=== PATIENT | male | born 1930 | race Caucasian/White ===

== ENCOUNTER → 2017-04-02 | Outpatient (CLI) | payer MEDICARE, OTHER ==
[~2017-04-02] MED LIST: ACEDIPPM; ASPI81CH; ATOR10; Bentyl20 MG PO; Cipro500 MG PO; DULO60; FOLI400; HYDACE5 PO; LEVOTHYROXINE; LEVSOD137; METO50ER; POLTRIOPSO OD; ROSU5; WARF2; WARF5
== END ==
LOC: LAB SHORT 10:14 → PLD 10:14
DX: D22.5 Melanocytic nevi of trunk (principal)
CPT/HCPCS: 88305

== ENCOUNTER 2017-11-05 11:28 | Day surgery (SDC) | payer MEDICARE, OTHER ==
[~2017-11-05] VITALS: Ht 182.9 cm; Wt 77.4 kg
== END 2017-11-05 13:34 | disposition home or self-care (01) ==
LOC: ORSCSDS 11:28
PROVIDERS: Internal Medicine Gastroenterology
PROC: 0DBE8ZX Excision of Large Intestine, Via Natural or Artificial Opening Endoscopic, Diagnostic (ICD-10-PCS; principal; 2017-11-05 12:30)
DX: R63.4 Abnormal weight loss (principal); K64.8 Other hemorrhoids; Z86.010 Personal history of colon polyps; K57.30 Diverticulosis of large intestine without perforation or abscess without bleeding; K59.00 Constipation, unspecified; E78.5 Hyperlipidemia, unspecified; E07.9 Disorder of thyroid, unspecified; F41.8 Other specified anxiety disorders
CPT/HCPCS: 88305; J7120

== ENCOUNTER 2018-08-01 19:12 | Emergency (ER) | payer MEDICARE, OTHER ==
[~2018-08-01] VITALS: Ht 182.9 cm; Wt 74.8 kg
[~2018-08-01 19:12] MED LIST changes: -ASPI81CH; +ASPI81CH PO; -ATOR10; +ATOR10 PO; -DULO60; +DULO60 PO; -LEVSOD137; +LEVSOD137 PO
[2018-08-01 19:54] LABS: BASOPHILS ABSOLUTE AUTO 0.03 K/mm3 (0.00-0.23); BASOPHILS PERCENT AUTO 0 % (0-2); EOSINOPHILS ABSOLUTE AUTO 0.09 K/mm3 (0.00-0.68); EOSINOPHILS PERCENT AUTO 1 % (0-6); Hematocrit 39.6 % (37.0-53.0); Hemoglobin 12.9 g/dL (13.5-17.5); IMMATURE GRAN ABSOLUTE AUTO 0.02 K/mm3 (0.00-0.10); IMMATURE GRAN PERCENT AUTO 0 % (0-1); LYMPHOCYTES ABSOLUTE AUTO 1.26 K/mm3 (0.84-5.20); LYMPHOCYTES PERCENT AUTO 17 % (21-46); MONOCYTES PERCENT AUTO 8 % (4-13); Mean Corpuscular HGB 31.2 pg (26.0-34.0); Mean Corpuscular HGB Conc 32.6 g/dL (31.5-36.5); Mean Corpuscular Volume 96 fL (80-100); Mean Platelet Volume 11.3 fL (9.1-12.4); NEUTROPHILS ABSOLUTE AUTO 5.25 K/mm3 (1.96-9.15); NEUTROPHILS PERCENT AUTO 72 % (41-73); Platelet Count 153 K/mm3 (150-400); RDW Coefficient Variation 12.8 % (11.7-14.2); RDW Standard Deviation 45.2 fL (35.1-46.3); Red Blood Cell Count 4.13 M/mm3 (4.30-5.90); White Blood Cell Count 7.25 K/mm3 (4.00-11.30)
[2018-08-01 20:14] LABS: Albumin, Blood 3.6 g/dL (3.4-5.0); Bilirubin, Total 0.6 mg/dL (0.1-1.0); Bun/Creatinine Ratio 21.2 (12.0-20.0); Calcium, Blood 9.7 mg/dL (8.5-10.1); Creatinine, Blood 1.56 mg/dL (0.60-1.20); Globulin, Blood 3.6 g/dL (2.2-4.0); Potassium, Blood 3.6 mmol/L (3.5-5.5); Total Protein, Blood 7.2 g/dL (6.4-8.2)
== END 2018-08-01 23:21 | disposition home or self-care (01) ==
LOC: ER 19:12
PROVIDERS: Emergency Medicine
DX: R63.4 Abnormal weight loss (principal); Z68.22 Body mass index [BMI] 22.0-22.9, adult; R53.1 Weakness; Z79.899 Other long term (current) drug therapy; Z79.82 Long term (current) use of aspirin; I48.91 Unspecified atrial fibrillation; Z87.891 Personal history of nicotine dependence
CPT/HCPCS: 74177; 80053; 84443; 84484; 85025; 93005; 93010; 96360-59; 96361-59; 99285-25; J7120; Q9967

== ENCOUNTER → 2018-09-10 | Outpatient (CLI) | payer MEDICARE, OTHER | END | disposition home or self-care (01) | LOC: PLD 10:57 → LAB SHORT 10:57 | DX: D48.5 Neoplasm of uncertain behavior of skin (principal) | CPT/HCPCS: 88305 ==

== ENCOUNTER 2019-04-13 16:24 | Observation (INO) | payer MEDICARE, OTHER ==
[~2019-04-13] VITALS: Ht 182.9 cm; Wt 75.1 kg
[~2019-04-13 16:24] MED LIST changes: -ASPI81CH PO; +Aspir 8181 MG PO; -LEVSOD137 PO; +SYNTHROID125 MC1 PO
[2019-04-13 17:00] LABS: BASOPHILS ABSOLUTE AUTO 0.03 K/mm3 (0.00-0.23); BASOPHILS PERCENT AUTO 0 % (0-2); EOSINOPHILS ABSOLUTE AUTO 0.07 K/mm3 (0.00-0.68); EOSINOPHILS PERCENT AUTO 1 % (0-6); Hematocrit 49.4 % (37.0-53.0); Hemoglobin 16.4 g/dL (13.5-17.5); IMMATURE GRAN ABSOLUTE AUTO 0.03 K/mm3 (0.00-0.10); IMMATURE GRAN PERCENT AUTO 0 % (0-1); LYMPHOCYTES ABSOLUTE AUTO 1.08 K/mm3 (0.84-5.20); LYMPHOCYTES PERCENT AUTO 10 % (21-46); MONOCYTES ABSOLUTE AUTO 0.78 K/mm3 (0.16-1.47); MONOCYTES PERCENT AUTO 7 % (4-13); Mean Corpuscular HGB 31.6 pg (26.0-34.0); Mean Corpuscular HGB Conc 33.2 g/dL (31.5-36.5); Mean Corpuscular Volume 95 fL (80-100); Mean Platelet Volume 11.6 fL (9.1-12.4); NEUTROPHILS ABSOLUTE AUTO 9.09 K/mm3 (1.96-9.15); NEUTROPHILS PERCENT AUTO 82 % (41-73); Platelet Count 179 K/mm3 (150-400); RDW Coefficient Variation 12.7 % (11.7-14.2); RDW Standard Deviation 44.9 fL (35.1-46.3); Red Blood Cell Count 5.19 M/mm3 (4.30-5.90); White Blood Cell Count 11.08 K/mm3 (4.00-11.30)
[2019-04-13] MEDS ORDERED: VENLAFAXINE HCL75 M1 PO (17:36)
[2019-04-13] MEDS ORDERED: ATORVASTATIN CA10 M1 PO (17:36)
[2019-04-13] MEDS ORDERED: LEVOTHYROXINE137 MCG PO (17:36)
[2019-04-13 17:40] LABS: Alanine Aminotransfer (ALT/SGP 33 U/L (12-78); Albumin, Blood 3.9 g/dL (3.4-5.0); Albumin/Globulin Ratio 1.1 (0.8-1.8); Alk Phos 116 U/L (50-136); Anion Gap 4 mmol/L (6-16); Aspartate Aminotrans (AST/SGOT 20 U/L (12-37); Bilirubin, Total 0.6 mg/dL (0.1-1.0); Blood Urea Nitrogen 38 mg/dL (8-24); Bun/Creatinine Ratio 28.6 (12.0-20.0); CO2, Blood 28 mmol/L (21-32); Calcium, Blood 9.6 mg/dL (8.5-10.1); Chloride, Blood 107 mmol/L (98-108); Creatinine, Blood 1.33 mg/dL (0.60-1.20); Globulin, Blood 3.4 g/dL (2.2-4.0); Glomerular Filtration Rate 54 (60-); Glucose, Blood 114 mg/dL (70-99); Potassium, Blood 3.7 mmol/L (3.5-5.5); Sodium, Blood 139 mmol/L (136-145); Total Protein, Blood 7.3 g/dL (6.4-8.2); Troponin I <0.015 ng/mL (0.000-0.040)
[2019-04-13 19:32] LABS: Free Thyroxine 1.12 ng/dL (0.70-1.60)
[2019-04-13 19:33] LABS: Thyroid Stimulating Hormone 0.259 uIU/mL (0.360-4.800); Triiodothyronine, Free 2.45 pg/mL (2.18-3.98)
--- NOTE | 2019-04-14 05:07 | NUR ---
SHIFT SUMMARY PT SLEEPING IN ROOM COMFORTABLY AT THIS TIME. PT ARRIVED TO UNIT ON CARDIZEM GTT AT 10ML/HR W/ HR 120'S IN AFIB. PT CONVERTED TO NSR AT 0345 AND CARDIZEM GTT WAS TURNED OFF AT THAT TIME. RESP EVEN UNLABORED ON RA W/ SATS >92%. DENIED ANY CP. 2ND TROP SLIGHTLY ELEVATED. PT DENIED OTHER NEEDS. INDEPENDENT IN ROOM. CALL LIGHT IN REACH.
--- NOTE | 2019-04-14 16:41 | NUR ---
SHIFT SUMMARY PT A&Ox4; CALM AND COOPERATIVE WITH CARE. PT RESTING IN BED, IND IN ROOM. PER TELE SR WITH PAC'S T/O SHIFT. PT DENIES PAIN, CHEST PAIN/PRESSURE, SOB, DIZZINESS, AND NAUSEA T/O SHIFT. ECHO COMPLETED DURING SHIFT. VSS. NO OTHER ACUTE CHANGES NOT DURING SHIFT. WILL CONTINUE TO MONITOR UNITL REPORT GIVEN TO ONCOMING RN.
--- NOTE | 2019-04-15 06:42 | NUR ---
SHIFT SUMMARY PT A&O; PT PLEASANT & COMPLIANT W/ CARE; FAMILY AT BEDSIDE START OF SHIFT; DENIES CHEST PAIN; VSS; NSR W/ FEW PAC NOTED ON TELE; O2 SATS >93 ON RA; PT SLEPT SEVERAL HOURS IN BETWEEN INTERVENTIONS; DENIES NEEDS AT THIS TIME; CALL LIGHT IN REACH; BED IN LOWEST POSITION; WILL CONTINUE TO MONITOR CLOSELY UNTIL HAND OFF TO DAY SHIFT RN.
--- NOTE | 2019-04-15 08:27 | NUR ---
AM NOTE... ASSUMED CARE OF PT APROX 0700. PT IS A&Ox4 WITH MOMENTS OF FORGETFULNESS BUT IS EASILY REORIENTED. PT'S VS STABLE. PT DENIES ANY CHEST PAIN/PRESSURE N/V OR SOB. PT IS IN NSR/SB IN THE 50'S-60'S PER FABRIC NORMALIZER. PT DENIES ANY LIGHT HEADED/DIZZINESS. L/S CLEAR T/O DIM IN THE BASES. PT IS ON RA. BT PRESENT AND NORMOACITVE. ABD IS SOFT AND NONTENDER TO PALP. NO EDEMA NOTED ON ASSESSMENT. CALL LIGHT IN REACH WILL CONTINUE TO MONITOR.
[2019-04-15] MEDS ORDERED: SYNTHROID125 MC1 PO (13:31)
--- NOTE | 2019-04-15 14:42 | NUR ---
PT D/C HOME. PT D/C HOME WITH NEW MEDICATION EDUCATION AND DISCHARGE EDUCATION/INFORMATION. IV WAS REMOVED WNL. PT DENIES CHEST PAIN/PRESSURE N/V OR SOB. ALL OF PT'S BELONGINS PACKED AND SENT WITH THE PT.
== END 2019-04-15 14:15 | disposition home or self-care (01) ==
LOC: ER 16:24 → PCU 16:25
PROVIDERS: Emergency Medicine; Physician Assistant; ADMIT Hospitalist
DX: I48.91 Unspecified atrial fibrillation (principal); N18.3 Chronic kidney disease, stage 3 (moderate); E03.9 Hypothyroidism, unspecified; Z79.899 Other long term (current) drug therapy; E78.5 Hyperlipidemia, unspecified; F32.9 Major depressive disorder, single episode, unspecified; Z87.891 Personal history of nicotine dependence; Z79.82 Long term (current) use of aspirin
CPT/HCPCS: 36415; 71046; 80053; 83880; 84439; 84443; 84481; 84484; 85025; 93005; 93010; 93306; 96361; 96365; 96366; 96376; 99285-25; A9270-GY; G0378; J7030

== ENCOUNTER 2019-04-17 19:13 | Inpatient (IN) | payer MEDICARE, OTHER ==
[~2019-04-17] VITALS: Ht 182.9 cm; Wt 71.0 kg
[~2019-04-17 19:13] MED LIST changes: +ATORVASTATIN CA10 M1 PO; +LEVOTHYROXINE137 MCG PO; +VENLAFAXINE HCL75 M1 PO
[2019-04-17 19:48] LABS: BASOPHILS ABSOLUTE AUTO 0.04 K/mm3 (0.00-0.23); BASOPHILS PERCENT AUTO 1 % (0-2); EOSINOPHILS ABSOLUTE AUTO 0.15 K/mm3 (0.00-0.68); EOSINOPHILS PERCENT AUTO 2 % (0-6); Hematocrit 49.4 % (37.0-53.0); Hemoglobin 16.2 g/dL (13.5-17.5); IMMATURE GRAN ABSOLUTE AUTO 0.01 K/mm3 (0.00-0.10); IMMATURE GRAN PERCENT AUTO 0 % (0-1); LYMPHOCYTES ABSOLUTE AUTO 1.93 K/mm3 (0.84-5.20); LYMPHOCYTES PERCENT AUTO 23 % (21-46); MONOCYTES ABSOLUTE AUTO 0.63 K/mm3 (0.16-1.47); MONOCYTES PERCENT AUTO 8 % (4-13); Mean Corpuscular HGB 31.7 pg (26.0-34.0); Mean Corpuscular HGB Conc 32.8 g/dL (31.5-36.5); Mean Corpuscular Volume 97 fL (80-100); Mean Platelet Volume 11.7 fL (9.1-12.4); NEUTROPHILS ABSOLUTE AUTO 5.48 K/mm3 (1.96-9.15); NEUTROPHILS PERCENT AUTO 67 % (41-73); Platelet Count 160 K/mm3 (150-400); RDW Coefficient Variation 12.9 % (11.7-14.2); RDW Standard Deviation 46.2 fL (35.1-46.3); Red Blood Cell Count 5.11 M/mm3 (4.30-5.90); White Blood Cell Count 8.24 K/mm3 (4.00-11.30)
[2019-04-17 20:08] LABS: Alanine Aminotransfer (ALT/SGP 28 U/L (12-78); Albumin, Blood 3.8 g/dL (3.4-5.0); Alk Phos 121 U/L (50-136); Anion Gap 8 mmol/L (6-16); Aspartate Aminotrans (AST/SGOT 24 U/L (12-37); Bilirubin, Total 0.6 mg/dL (0.1-1.0); Blood Urea Nitrogen 36 mg/dL (8-24); Bun/Creatinine Ratio 27.7 (12.0-20.0); CO2, Blood 27 mmol/L (21-32); Calcium, Blood 9.2 mg/dL (8.5-10.1); Chloride, Blood 108 mmol/L (98-108); Globulin, Blood 3.8 g/dL (2.2-4.0); Glomerular Filtration Rate 56 (60-); Glucose, Blood 104 mg/dL (70-99); Potassium, Blood 4.2 mmol/L (3.5-5.5); Sodium, Blood 143 mmol/L (136-145); Total Protein, Blood 7.6 g/dL (6.4-8.2); Troponin I <0.015 ng/mL (0.000-0.040)
[2019-04-17 22:52] LABS: International Normalized Ratio 0.97; Prothrombin Time Results 10.4 Sec (9.7-11.5)
[2019-04-18 04:25] LABS: BASOPHILS ABSOLUTE AUTO 0.03 K/mm3 (0.00-0.23); BASOPHILS PERCENT AUTO 0 % (0-2); EOSINOPHILS ABSOLUTE AUTO 0.18 K/mm3 (0.00-0.68); EOSINOPHILS PERCENT AUTO 2 % (0-6); Hematocrit 43.4 % (37.0-53.0); IMMATURE GRAN ABSOLUTE AUTO 0.02 K/mm3 (0.00-0.10); IMMATURE GRAN PERCENT AUTO 0 % (0-1); LYMPHOCYTES PERCENT AUTO 24 % (21-46); MONOCYTES ABSOLUTE AUTO 0.65 K/mm3 (0.16-1.47); MONOCYTES PERCENT AUTO 8 % (4-13); Mean Corpuscular HGB 31.3 pg (26.0-34.0); Mean Corpuscular HGB Conc 32.3 g/dL (31.5-36.5); Mean Corpuscular Volume 97 fL (80-100); Mean Platelet Volume 11.9 fL (9.1-12.4); NEUTROPHILS PERCENT AUTO 64 % (41-73); Platelet Count 153 K/mm3 (150-400); RDW Coefficient Variation 12.8 % (11.7-14.2); RDW Standard Deviation 45.3 fL (35.1-46.3); Red Blood Cell Count 4.48 M/mm3 (4.30-5.90); White Blood Cell Count 7.78 K/mm3 (4.00-11.30)
[2019-04-18 04:47] LABS: Bun/Creatinine Ratio 24.2 (12.0-20.0); Calcium, Blood 8.7 mg/dL (8.5-10.1); Creatinine, Blood 1.28 mg/dL (0.60-1.20); Potassium, Blood 3.7 mmol/L (3.5-5.5)
--- NOTE | 2019-04-18 05:40 | NUR ---
PCU ADMIT / SHIFT SUMMARY PT BROUGHT TO PCU RM 07, BY LURDES, FROM ER @ APPROX 0130. PT A&O X4, ABLE TO INDEPENDENTLY TRANSFER FROM [facility] [place] TO PCU BED. VSS. MONITOR SHOWS SB W/ PVC's & PAC's, HR 40's-50's. SPO2 > 92% ON RA. PT SLEEPING MAJORITY OF SHIFT. WILL CONTINUE TO MONITOR AND PROVIDE CARE UNTIL REPORT OFF TO DAY SHIFT RN.
--- NOTE | 2019-04-18 07:24 | NUR ---
NURSING PCU DAYSHIFT: Assumed care of pt at approx 0700. A/O, very pleasant, cooperative w/care. Denies any pain/discomfort. Skin is intact w/no breakdown noted. Ambulates independently and w/o difficulty. Tele in place, no c/o CP/pressure, SB w/HR 50's, SBP 130's, no noted edema. 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 Abd SNT, BT+, voiding w/o difficulty per pt. PIV x1, s/l. No s/s of acute distress at this time. Pt denies any current needs or questions regarding plan of care. Awaiting rounding from PMD, call light in reach, cont to monitor for any changes.
[2019-04-19 04:11] LABS: International Normalized Ratio 1.04; Prothrombin Time Results 11.1 Sec (9.7-11.5)
--- NOTE | 2019-04-19 05:26 | NUR ---
SHIFT SUMMARY PT A&O X4. VSS. MONITOR SHOWS SB-SR, HR 40's-60's. SPO2 > 92% ON RA. NO EVENTS OVER NIGHT. PT NPO SINCE MIDNIGHT FOR POSSIBLE ANGIO TODAY. PT DENIES PAIN/DISCOMFORT. INDEPENDENT IN ROOM. WILL CONTINUE TO MONITOR AND PROVIDE CARE UNTIL REPORT OFF TO DAY SHIFT RN.
--- NOTE | 2019-04-19 14:13 | NUR ---
PT TO SMALL ARMS REPAIRER AT THIS TIME FOR ANGIOGRAM, HAS BEEN AT THE BEDSIDE AND IS CURRENTLY WAINT IN THE ROOM FOR HER DAUGHTER. PT IS AWAKE, ALERT AND ORIENTED, VSS, RESP UNLABORED.
--- NOTE | 2019-04-19 19:56 | NUR ---
SHIFT SUMMARY PT REMAINS A&O X4, VSS, ON ROOM AIR. PT DENIES CP/PRESSURE OR SOB. HE IS POST ANGIO TODAY. RIGHT RADIAL ACCESS, TR BAND IN PLACE, NO HEMATOMA/BLEEDING NOTED,CIRC WNL, ARM BOARD IN PLACE, PT EDUCATED ABOUT IMMOBILIZATION. PT WILL BE TRANSFERRED TO [facility] WHEN A BED IS AVAILABLE, WAS IN TO SPEAK WITH THE FAMILY ABOUT THE ANGIO RESULTS AND TRANSFER. PT IS CURRENTLY RESTING IN BED, FAMILY AT BEDSIDE, RESP UNLABORED, REPORT GIVEN TO NOC TYRONE
--- NOTE | 2019-04-19 23:20 | NUR ---
PLACED CALL TO DR STREETER TO REPORT THIS UNSTABLE TR SITE AND DR CHANDLER HAD ORDERED HEPARIN TO BE STARTED AT 2300 . ORDER TO HOLD FOR NOW AND ONLY START WHEN SITE COMPLETELY STABLE AND NO BOLUS.
[2019-04-20 04:13] LABS: International Normalized Ratio 1.06; Prothrombin Time Results 11.3 Sec (9.7-11.5)
--- NOTE | 2019-04-20 06:34 | NUR ---
ASSUMED CARE AT 1900 . SEE COURSE OF TR BAND WITH HC SITE MANAGEMENT SECTION. SR / SB W/ PACS. SLEEPING WELL ALL NOC EXCEPT FOR CONSTANT AWAKENING FOR TR BAND CHECKS. PLACED CALL TO DR STREETER ABOUT 2300 JUST PRIOR WHEN APPROX 2 ML STILL LEFT IN TR AND POSST OOB TO BR, BLOOD DRIPPING OFF ARM BOARD. REQUIRED 5ML TO CEASE BLEED. AND ORDERS LEFT TO NOT START HEPARIN UNTIL TR SITE COMPLETELY RECOVERED AND WNL. HEPARIN WAS STARTED BY 0500 SITE WNL . MILD BRUISE NOTED ALL NOC AND WHEN BAND REMOVED NOTED EXTENT . SITE SOFT AND NO HEMATOMA. REFUSED HS SNACK AND FLUIDS ENCOURAGED.
--- NOTE | 2019-04-20 07:42 | NUR ---
ASSUMED CARE - PCU DAYSHIFT PATIENT ALERT AND ORIENTED X4. RESP E/U ON ROOM AIR - LUNG SOUNDS CLEAR. PATIENT HAS MINIMAL BLE EDEMA 1+. HR REMAINS SINUS WILL AT 53 BEATS PER MINUTES AND PAC'S NOTED - NO FURTHER CARDIAC EVENTS NOTED. PATIENT UP INDEPENDENTLY. PATIENT DENIES ANY CHEST PAIN OR PRESSURE AT THIS TIME. UPDATED THAT HE STILL DOES NOT HAVE A ROOM FOR HIS COBRA TRANSFER AT THIS POINT IN TIME. CALL LIGHT W/I REACH, VSS. HEPARIN GTT CHECKED WITH SADIA Guevara RN. PATIENTS ARM BOARD IN PLACE WITH CLEAR TEGADERM DRESSING OVER RIGHT RADIAL SITE - NO S/SX OF BLEEDING NOTED AT THIS TIME, MILD BRUISING.W WILL CONTINUE TO MONITOR.
--- NOTE | 2019-04-20 14:28 | NUR ---
PCU DISCHARGE SUMMARY PATIENT LEFT UNIT WITH EMS VIA GURNEY. PATIENT REMAINS ON ROOM AIR. ALERT AND ORIENTED X4. RESP E/U. HR REMAINS SR IN THE 70'S. HEPARIN GTT RUNNING PER PHARMACY C/ APTT REMAINING STABLE PER PHARMACY. REPORT TO EMS JACKIE. REPORT TO MAIDA HANSEN AT [facility].
== END 2019-04-20 14:16 | disposition short-term general hospital (02) | DRG 287 ==
LOC: ER 19:13 → PCU 19:14 → ERHOLD 19:14 → PCU 20:05 → EDBEDREQDT 04-18 00:22 → EDBEDREQ 04-18 00:22 → PCU 04-18 01:26
PROVIDERS: Nurse Practitioner Acute Care; Physician Assistant; ADMIT Internal Medicine
PROC: B2111ZZ Fluoroscopy of Multiple Coronary Arteries using Low Osmolar Contrast (ICD-10-PCS; principal; 2019-04-19)
DX: I25.10 Atherosclerotic heart disease of native coronary artery without angina pectoris (principal); I48.92 Unspecified atrial flutter; I24.8 Other forms of acute ischemic heart disease; I48.0 Paroxysmal atrial fibrillation; N18.3 Chronic kidney disease, stage 3 (moderate); E78.5 Hyperlipidemia, unspecified; E03.9 Hypothyroidism, unspecified; Z87.891 Personal history of nicotine dependence; F32.9 Major depressive disorder, single episode, unspecified; R97.20 Elevated prostate specific antigen [PSA]; I08.1 Rheumatic disorders of both mitral and tricuspid valves; I49.5 Sick sinus syndrome; I65.21 Occlusion and stenosis of right carotid artery; F41.9 Anxiety disorder, unspecified; I12.9 Hypertensive chronic kidney disease with stage 1 through stage 4 chronic kidney disease, or unspecified chronic kidney disease
CPT/HCPCS: 36415; 71046; 80048; 80053; 84484; 85025; 85610; 85730; 93005; 93010; 93454; 93880; 96365; 96366; 96372; 96376; 99152; 99153; 99285-25; C1769; C1894; G0378; J1644; J1650; J2250; J3010; J7030; Q9967

== ENCOUNTER 2019-06-17 13:12 | Inpatient (IN) | payer MEDICARE, OTHER ==
[~2019-06-17] VITALS: Ht 182.9 cm; Wt 68.0 kg
[~2019-06-17 13:12] MED LIST changes: +ATOR20 PO; -ATORVASTATIN CA10 M1 PO
[2019-06-17] MEDS ORDERED: LEVSOD112 PO (13:50)
[2019-06-17] MEDS ORDERED: ELIQUIS5 M3 PO (13:51)
[2019-06-17] MEDS ORDERED: ESCITALOPRAM OXA5 MG PO (13:52)
[2019-06-17] MEDS ORDERED: CARVEDILOL3.125 MG PO (13:52)
[2019-06-17] MEDS ORDERED: NITR.4SL SL (13:52)
[2019-06-17 14:08] LABS: BASOPHILS ABSOLUTE AUTO 0.02 K/mm3 (0.00-0.23); BASOPHILS PERCENT AUTO 0 % (0-2); EOSINOPHILS ABSOLUTE AUTO 0.13 K/mm3 (0.00-0.68); EOSINOPHILS PERCENT AUTO 2 % (0-6); Hematocrit 47.9 % (37.0-53.0); Hemoglobin 15.6 g/dL (13.5-17.5); IMMATURE GRAN ABSOLUTE AUTO 0.02 K/mm3 (0.00-0.10); IMMATURE GRAN PERCENT AUTO 0 % (0-1); LYMPHOCYTES ABSOLUTE AUTO 1.14 K/mm3 (0.84-5.20); LYMPHOCYTES PERCENT AUTO 15 % (21-46); MONOCYTES ABSOLUTE AUTO 0.49 K/mm3 (0.16-1.47); MONOCYTES PERCENT AUTO 6 % (4-13); Mean Corpuscular HGB 31.8 pg (26.0-34.0); Mean Corpuscular HGB Conc 32.6 g/dL (31.5-36.5); Mean Corpuscular Volume 98 fL (80-100); NEUTROPHILS ABSOLUTE AUTO 5.94 K/mm3 (1.96-9.15); NEUTROPHILS PERCENT AUTO 77 % (41-73); Platelet Count 140 K/mm3 (150-400); RDW Coefficient Variation 12.8 % (11.7-14.2); RDW Standard Deviation 45.9 fL (35.1-46.3); Red Blood Cell Count 4.91 M/mm3 (4.30-5.90); White Blood Cell Count 7.74 K/mm3 (4.00-11.30)
[2019-06-17 14:30] LABS: Magnesium, Blood 2.2 mg/dL (1.6-2.4)
[2019-06-17 14:32] LABS: Thyroid Stimulating Hormone 0.564 uIU/mL (0.360-4.800)
[2019-06-17 14:48] LABS: Troponin I <0.015 ng/mL (0.000-0.040)
[2019-06-17 14:49] LABS: Alanine Aminotransfer (ALT/SGP 26 U/L (12-78); Albumin, Blood 3.5 g/dL (3.4-5.0); Albumin/Globulin Ratio 1.1 (0.8-1.8); Alk Phos 98 U/L (50-136); Anion Gap 5 mmol/L (6-16); Aspartate Aminotrans (AST/SGOT 19 U/L (12-37); Bilirubin, Total 0.7 mg/dL (0.1-1.0); Blood Urea Nitrogen 21 mg/dL (8-24); Bun/Creatinine Ratio 18.8 (12.0-20.0); CO2, Blood 26 mmol/L (21-32); Calcium, Blood 8.9 mg/dL (8.5-10.1); Chloride, Blood 111 mmol/L (98-108); Creatinine, Blood 1.12 mg/dL (0.60-1.20); Globulin, Blood 3.1 g/dL (2.2-4.0); Glomerular Filtration Rate >60 (60-); Glucose, Blood 83 mg/dL (70-99); Sodium, Blood 142 mmol/L (136-145); Total Protein, Blood 6.6 g/dL (6.4-8.2)
--- NOTE | 2019-06-17 19:32 | NUR ---
ASSUMED CARE OF PATIENT AT APPROXIMATELY 1910 FROM ROMAN Webb RN. PATIENT ALERT AND ORIENTED TO SELF, AND LOCATION; UNABLE TO STATE DATE; FORGETFUL. PATIENT REPORTS HIS ONLY PAIN IS STARVATION PAIN AND HE WAS GOING TO CALL SOMEONE TO BRING HIM FOOD IN; EXTRA TRAY IN PANTRY GIVEN TO PATIENT. PATIENT DENIES CP/PRESSURE, NUMBNESS, TINGING, DIZZINES OR NAUSEA. NSR/SB ON TELE; OXYGEN SATURATION ABOVE 90% ON ROOM AIR. PATIENT HYPERTENSIVE SINCE ARRIVAL TO UNIT; WILL CALL HOSPITALIST TO UPDATE ON BP. PIV INFUSING FLUIDS PER ORDER. PATIENT CURRENTLY RESTING IN BED; CALL LIGHT IN REACH; BED IN LOWEST POSISTION; BED ALARM ON; WILL CONTINUE TO MONITOR AND ASSESS UNTIL END OF SHIFT.
--- NOTE | 2019-06-17 20:47 | NUR ---
CALLED DR. RAMIRES ABOUT HIGH BLOOD PRESSURE; ORDERS PUT IN BY MD; WILL GIVE WHEN ORDERS ARE ACTIVE.
--- NOTE | 2019-06-17 20:56 | NUR ---
PATIENT BLOOD PRESSURE IN 149/74 BEFORE PRN HYDRALAZINE IV GIVEN; HELD.
[2019-06-18 04:36] LABS: Anion Gap 6 mmol/L (6-16); Blood Urea Nitrogen 22 mg/dL (8-24); Bun/Creatinine Ratio 17.1 (12.0-20.0); CO2, Blood 25 mmol/L (21-32); Calcium, Blood 8.2 mg/dL (8.5-10.1); Chloride, Blood 111 mmol/L (98-108); Creatinine, Blood 1.29 mg/dL (0.60-1.20); Glomerular Filtration Rate 56 (60-); Glucose, Blood 97 mg/dL (70-99); Potassium, Blood 3.9 mmol/L (3.5-5.5); Sodium, Blood 142 mmol/L (136-145); Troponin I <0.015 ng/mL (0.000-0.040)
--- NOTE | 2019-06-18 06:11 | NUR ---
PATIENT HEART RATE 40-60'S THROUGH OUT NIGHT; NOT SYMPTOMATIC. VSS. EKG DONE. PATIENT SLEPT ABOUT EIGHT HOURS. WILL CONTINUE TO MONITOR AND ASSESS UNTIL END OF SHIFT.
--- NOTE | 2019-06-18 08:53 | NUR ---
DR CHI AT BEDSIDE TO SIGN CONSENT FOR PACEMAKER. PT IS EDUCATED ABOUT PROCEUDRE BY DR SANCHES. COREG IS HELD PER CLINICAL FORENSIC ENGINEER BY THIS AND DR SANCHES. PT EXPRESSED UNDERSTANDING OF PROCEUDRECONSENT IS SIGNED
--- NOTE | 2019-06-18 14:08 | NUR ---
PACEMAKER HAS BEEN D/C PER WISHES OF AND DAUGHTER. PT PROVIDED WITH LUNCH TRAY HE IS NO LONGER NPO PER DR SANCHES
--- NOTE | 2019-06-18 17:17 | NUR ---
SHIFT NOTE PT HAS BEEN RESTING IN BED T/O THE DAY. PT DENIES SOB. REPORTED A BRIEF BOUT OF CHEST PAIN TODAY THAT RESOLVED WITHOUT INTERVENTION. PT WAS SCHEDULED FOR PACEMAKER TODAY, AFTER DR SANCHES SPOKE WITH AND DAUGHTER THEY LATER DECIDED TO REFUSE THE INTERVENTION. PT WAS UPDATED AND TAKEN OFF OF NPO RESTRICTIONS. PT HAS BEEN INDEPENDANT IN THE ROOM T/O THE DAY. VSS. SINUS WILL IN 40-50s SINCE LAST NOC, WHICH IS UNCHANGED TODAY.
--- NOTE | 2019-06-19 05:57 | NUR ---
SHIFT SUMMARY PT SLEEPING IN ROOM COMFORTABLY AT THIS TIME. NO ACUTE CHANGES IN STATUS T/O NIGHT. PT SLEPT WELL. DENIED CP OR SOB. RESP EVEN UNLABORED ON RA W/ SATS >92%. PT REPOTED A HEADACHE AND SOME UPPER BACK PAIN AND WAS MEDICATED PER EMAR TWICE. KPAD APPLIED TO UPPER SHOULDERS FOR COMFORT. PT DENIED OTHER NEEDS. CALL LIGHT IN REACH.
[2019-06-19] MEDS ORDERED: LANOXIN125 MCG PO (13:18)
[2019-06-19] MEDS ORDERED: Prinivil10 MG PO (13:19)
--- NOTE | 2019-06-19 14:55 | NUR ---
PCU DISCHARGE SUMMARY PATIENT REMAINS ALERT AND ORIENTED TO SELF, LOCATION AND SITUATION. PATIENT EAGER TO DISCHARGE HOME T/O SHIFT. PATIENT VERBALIZED TO THIS RN THAT IT WAS NOW THE PLAN THAT HE WOULD NOT BE RECIEVING PACEMAKER. PATIENT AMBULATED OUT OF UNIT TO HIS WIFES CAR - WENT OVER DISCHARGE INFORMATIONS EXTENSIVELY WITH AND AT VEHICLE - DISCUSSED NEW MEDICATIONS AND FOLLOW UP APPOINTMENTS AND MONITORING VS OFTEN - THEY VERBALIZED UNDERSTANDING. PATIENT LEFT IN NO ACUTE DISTRESS HOME WITH BELONGINGS.
== END 2019-06-19 13:46 | disposition home or self-care (01) | DRG 309 ==
LOC: ER 13:12 → PCU 13:13
PROVIDERS: Emergency Medicine; Physician Assistant; ADMIT Internal Medicine Endocrinology, Diabetes & Metabolism
DX: I48.0 Paroxysmal atrial fibrillation (principal); I25.110 Atherosclerotic heart disease of native coronary artery with unstable angina pectoris; E78.5 Hyperlipidemia, unspecified; I49.5 Sick sinus syndrome; I95.9 Hypotension, unspecified; E03.9 Hypothyroidism, unspecified; I65.21 Occlusion and stenosis of right carotid artery; F03.90 Unspecified dementia, unspecified severity, without behavioral disturbance, psychotic disturbance, mood disturbance, and anxiety; F41.8 Other specified anxiety disorders; N18.3 Chronic kidney disease, stage 3 (moderate); I25.2 Old myocardial infarction; Z87.891 Personal history of nicotine dependence; Z79.82 Long term (current) use of aspirin; Z79.01 Long term (current) use of anticoagulants
CPT/HCPCS: 36415; 71045; 80048; 80053; 83735; 83880; 84443; 84484; 85025; 93005; 93010; 96365; 96366; 96367; 96376; 99285-25; A9270; A9270-GY; G0378; J3475; J7030

== ENCOUNTER 2020-05-14 06:20 | Emergency (ER) | payer MEDICARE, OTHER ==
[~2020-05-14] VITALS: Ht 182.9 cm; Wt 77.1 kg
[~2020-05-14 06:20] MED LIST changes: +CARVEDILOL3.125 MG PO; +ELIQUIS5 M3 PO; +ESCITALOPRAM OXA5 MG PO; +LANOXIN125 MCG PO; +LEVSOD112 PO; +NITR.4SL SL; +Prinivil10 MG PO
[2020-05-14 07:03] LABS: BASOPHILS ABSOLUTE AUTO 0.02 K/mm3 (0.00-0.23); BASOPHILS PERCENT AUTO 0 % (0-2); EOSINOPHILS ABSOLUTE AUTO 0.07 K/mm3 (0.00-0.68); EOSINOPHILS PERCENT AUTO 1 % (0-6); Hematocrit 40.8 % (37.0-53.0); Hemoglobin 13.8 g/dL (13.5-17.5); IMMATURE GRAN ABSOLUTE AUTO 0.01 K/mm3 (0.00-0.10); IMMATURE GRAN PERCENT AUTO 0 % (0-1); LYMPHOCYTES ABSOLUTE AUTO 1.24 K/mm3 (0.84-5.20); LYMPHOCYTES PERCENT AUTO 21 % (21-46); MONOCYTES ABSOLUTE AUTO 0.51 K/mm3 (0.16-1.47); MONOCYTES PERCENT AUTO 9 % (4-13); Mean Corpuscular HGB 32.5 pg (26.0-34.0); Mean Corpuscular HGB Conc 33.8 g/dL (31.5-36.5); Mean Corpuscular Volume 96 fL (80-100); Mean Platelet Volume 11.6 fL (9.1-12.4); NEUTROPHILS ABSOLUTE AUTO 3.97 K/mm3 (1.96-9.15); NEUTROPHILS PERCENT AUTO 68 % (41-73); Platelet Count 125 K/mm3 (150-400); RDW Coefficient Variation 12.2 % (11.7-14.2); RDW Standard Deviation 42.9 fL (35.1-46.3); Red Blood Cell Count 4.24 M/mm3 (4.30-5.90); White Blood Cell Count 5.82 K/mm3 (4.00-11.30)
[2020-05-14 08:20] LABS: Alanine Aminotransfer (ALT/SGP 46 U/L (12-78); Albumin, Blood 3.9 g/dL (3.4-5.0); Albumin/Globulin Ratio 1.2 (0.8-1.8); Alk Phos 84 U/L (50-136); Anion Gap 8 mmol/L (6-16); Aspartate Aminotrans (AST/SGOT 23 U/L (12-37); Bilirubin, Total 1.1 mg/dL (0.1-1.0); Blood Urea Nitrogen 44 mg/dL (8-24); Bun/Creatinine Ratio 32.4 (12.0-20.0); CO2, Blood 24 mmol/L (21-32); Calcium, Blood 9.4 mg/dL (8.5-10.1); Chloride, Blood 109 mmol/L (98-108); Creatinine, Blood 1.36 mg/dL (0.60-1.20); Globulin, Blood 3.2 g/dL (2.2-4.0); Glomerular Filtration Rate 53 (60-); Glucose, Blood 75 mg/dL (70-99); Potassium, Blood 4.2 mmol/L (3.5-5.5); Sodium, Blood 141 mmol/L (136-145); Total Protein, Blood 7.1 g/dL (6.4-8.2); Troponin I <0.015 ng/mL (0.000-0.040)
[2020-05-14 08:28] LABS: Digoxin (Lanoxin) <0.06 ug/mL (0.80-2.00)
== END 2020-05-14 12:08 | disposition home or self-care (01) ==
LOC: ER 06:20
PROVIDERS: Emergency Medicine
DX: I48.91 Unspecified atrial fibrillation (principal); Z79.899 Other long term (current) drug therapy; Z79.01 Long term (current) use of anticoagulants; Z87.891 Personal history of nicotine dependence
CPT/HCPCS: 36415; 71045; 80053; 80162; 84484; 85025; 93005; 93010; 96374; 99285-25

== ENCOUNTER → 2020-09-06 | Outpatient (CLI) | payer MEDICARE, OTHER | END | disposition home or self-care (01) | LOC: LAB 10:47 → LAB SHORT 10:47 | DX: D48.5 Neoplasm of uncertain behavior of skin (principal) | CPT/HCPCS: 88305 ==

== ENCOUNTER → 2020-09-21 | Outpatient (CLI) | payer MEDICARE, OTHER | END | disposition home or self-care (01) | LOC: LAB SHORT 17:18 → LAB 17:18 | DX: R10.30 Lower abdominal pain, unspecified (principal); R31.9 Hematuria, unspecified | CPT/HCPCS: 87086 ==

== ENCOUNTER 2022-01-13 06:09 | Inpatient (IN) | payer MEDICARE, OTHER ==
[~2022-01-13] VITALS: Ht 182.9 cm; Wt 68.0 kg
[~2022-01-13 06:09] MED LIST changes: +EFUDEX40 GM; +METO25ER PO
[2022-01-13 06:56] LABS: BASOPHILS ABSOLUTE AUTO 0.03 K/mm3 (0.00-0.23); BASOPHILS PERCENT AUTO 0 % (0-2); EOSINOPHILS PERCENT AUTO 1 % (0-6); Hematocrit 39.6 % (37.0-53.0); Hemoglobin 13.1 g/dL (13.5-17.5); IMMATURE GRAN ABSOLUTE AUTO 0.02 K/mm3 (0.00-0.10); IMMATURE GRAN PERCENT AUTO 0 % (0-1); LYMPHOCYTES ABSOLUTE AUTO 1.43 K/mm3 (0.84-5.20); LYMPHOCYTES PERCENT AUTO 17 % (21-46); MONOCYTES ABSOLUTE AUTO 0.54 K/mm3 (0.16-1.47); MONOCYTES PERCENT AUTO 7 % (4-13); Mean Corpuscular HGB 32.6 pg (26.0-34.0); Mean Corpuscular HGB Conc 33.1 g/dL (31.5-36.5); Mean Corpuscular Volume 99 fL (80-100); Mean Platelet Volume 10.9 fL (9.1-12.4); NEUTROPHILS ABSOLUTE AUTO 6.08 K/mm3 (1.96-9.15); NEUTROPHILS PERCENT AUTO 74 % (41-73); Platelet Count 124 K/mm3 (150-400); RDW Coefficient Variation 12.6 % (11.7-14.2); RDW Standard Deviation 45.8 fL (35.1-46.3); Red Blood Cell Count 4.02 M/mm3 (4.30-5.90)
[2022-01-13 07:13] LABS: Albumin, Blood 3.2 g/dL (3.4-5.0); Albumin/Globulin Ratio 1.2 (0.8-1.8); Bilirubin, Total 0.6 mg/dL (0.1-1.0); Bun/Creatinine Ratio 20.3 (12.0-20.0); Creatinine, Blood 1.43 mg/dL (0.60-1.20); Globulin, Blood 2.6 g/dL (2.2-4.0); Potassium, Blood 3.9 mmol/L (3.5-5.5); Total Protein, Blood 5.8 g/dL (6.4-8.2)
[2022-01-13] MEDS ORDERED: ELIQUIS5 M2 PO (09:28)
[2022-01-13] MEDS ORDERED: ATORVASTATIN CA80 M1 PO (09:29)
[2022-01-13] MEDS ORDERED: ESCI5 PO (09:30)
[2022-01-13] MEDS ORDERED: SYNTHROID150 MC1 PO (09:32)
[2022-01-13] MEDS ORDERED: Zestril30 MG PO (09:33)
[2022-01-13] MEDS ORDERED: METO25ER PO (09:34)
--- NOTE | 2022-01-13 11:45 | NUR ---
INITIAL ASSESSMENT: Report recieved from ED RN, pt arrived to PCU 12 via gurney and was able to transfer to the bed with a SBA. He is alert and oriented to self and , he thinks he is in [place]. He denies CP or SOB. HR irreg, A-Fib in the 70s -80s. Patient came up from the ED with cardizem gtt infusing at 5 ml/hr LS CTA, Biox was 94% on RA. BT+. PPP. at bedside to provide health history and medication list. Call light in reach, will continue to monitor.
--- NOTE | 2022-01-13 16:45 | NUR ---
Met with pt and his Jones this afternoon to discuss code status. Pt was eating lunch during out visit. He was pleasant and cooperative. He had previously decided on Full Code status, but this time I also used language such as allowing natural vs being placed on ventilator if his heart were to stop beating. Received a verbal order from Dr. Moran to change code to DNR.
--- NOTE | 2022-01-13 19:23 | NUR ---
Summary: Patient arrived from the ER today around 1115 he was admitted for A-fib with RVR. Upon arrival the patients heart rate was in the 70s-80s with cardizem gtt running at 5 ml/hr. Patient is oriented to self and family. LS CTA, Biox initially was 94% on RA with nasal biox probe. Patient had a period that his saturations dropped down into the high 70s with a good pleth. Patients oxygen saturations came up into the 90s with 5L O2 via NC. Dr. Austin was notified, repeat CXR was done this continued to show no acute process. This RN was able to titrate the patient back down to RA with saturations in the high 90s. LS remain CTA. BT+. PPP. has remained at bedside t/o the shift. Report given to Mami SAAB RN.
[2022-01-14 04:31] LABS: BASOPHILS ABSOLUTE AUTO 0.02 K/mm3 (0.00-0.23); BASOPHILS PERCENT AUTO 0 % (0-2); EOSINOPHILS ABSOLUTE AUTO 0.08 K/mm3 (0.00-0.68); EOSINOPHILS PERCENT AUTO 1 % (0-6); Hematocrit 37.4 % (37.0-53.0); Hemoglobin 12.5 g/dL (13.5-17.5); IMMATURE GRAN ABSOLUTE AUTO 0.01 K/mm3 (0.00-0.10); IMMATURE GRAN PERCENT AUTO 0 % (0-1); LYMPHOCYTES ABSOLUTE AUTO 1.06 K/mm3 (0.84-5.20); LYMPHOCYTES PERCENT AUTO 17 % (21-46); MONOCYTES ABSOLUTE AUTO 0.54 K/mm3 (0.16-1.47); MONOCYTES PERCENT AUTO 9 % (4-13); Mean Corpuscular HGB 32.8 pg (26.0-34.0); Mean Corpuscular HGB Conc 33.4 g/dL (31.5-36.5); Mean Corpuscular Volume 98 fL (80-100); Mean Platelet Volume 11.1 fL (9.1-12.4); NEUTROPHILS PERCENT AUTO 72 % (41-73); Platelet Count 114 K/mm3 (150-400); RDW Coefficient Variation 12.7 % (11.7-14.2); RDW Standard Deviation 45.9 fL (35.1-46.3); Red Blood Cell Count 3.81 M/mm3 (4.30-5.90); White Blood Cell Count 6.21 K/mm3 (4.00-11.30)
[2022-01-14 04:49] LABS: Calcium, Blood 8.4 mg/dL (8.5-10.1); Creatinine, Blood 1.21 mg/dL (0.60-1.20); Magnesium, Blood 2.2 mg/dL (1.6-2.4); Potassium, Blood 4.3 mmol/L (3.5-5.5)
--- NOTE | 2022-01-14 06:14 | NUR ---
Patient remains A/O to self and family only. Often attempts to get up and sets off bed alarm, but is very redirectable. HR began to climb to 120-130's, Cardizem was resumed d/t stable BP, was started at 5. Shortly after, patients BP began to decrease with MAPs as low as 55. Called the resident who ordered 250ml NS bolus, MAP remained in 60's. Called again and another 250ml bolus was ordered, MAP returned with 62. Contacted the hospitalist who ordered 1L NS bolus, then maintenance fluids at 150ml/hr. MAP returned to 80's. Bladder scanned patient d/t small amounts voided each time he used urinal, at beginning of shift he was around 250ml, at end of shift around 200ml. Patient was observed coughing and choking after drinking water with his pills, patient reports that he often has issues with stuff "going down the wrong pipe". ST eval ordered and patient placed as NPO until cleared. Will report to dayshift RN.
--- NOTE | 2022-01-14 13:22 | NUR ---
Spiritual care visit conducted. Pt is lying in bed and resting. Pt immediately tells me that he has no idea what is wrong with him or why he is in the hospital. He states, "I'm justing getting old, I guess." Pt tells me about his and asks several times during the visit if Lea is in the hallway (she was not). Pt is very much in favor of prayer and voices gratitude after I provide prayer. He also repeats that he will have to Lea that I "stopped by" and that she will Be so glad to know that He got to see me (I have never met Lea, that I know of). Pt shows signs of an elevated mood and expresses appreciation for the visit. I will continue to remain available to pt and family.
--- NOTE | 2022-01-14 18:32 | NUR ---
END OF SHIFT: NERUO: ALERT AND ORIENTED X 1-2. PLEASANT DURING MOST OF THE SHIFT, MENTATION VERY SLIGHTLY AGITATED DURING THIS EVENING. SPOKE WITH HOSP, PRN, PM, AND 1 X NOW SEROQUEL. PATIENT AND FAMILY EDUCATED. BED ALARM IN PLACE CARDIAC: AFIB WITH RVR TO SB LOWEST TODAY OF AVERAGE OF 36 FOR LESS THAN 20 SECONDS, LONGEST PAUSE OF 3.52 SECONDS PROVIDER AWARE, MIDODRINE ADDED TODAY, AND PO CARDIZEM BP MAINTAINED MAP > 65 REST OF THE DAY PAST PULM: NO CONCERNS RA CLEAR JUST SHALLOW, GI/: SWALLOW EVAL TODAY NECTAR THICK, NO THINS, NO STRAWS, SUPERVISED EATING DUE TO SPPED. PATIENT MOST LIKELY STILL SILENTLY ASPIRATES, PROVIDER AWARE. MEDS WITH APPLESAUCE WHOLE. URINE HAS BEEN CLEAR, SMALL FREQUENT OUTPUTS, BM TODAY. NO FURTHER CONCERNS FROM THIS RN PATIENT OR FAMILY AND PROVIDER AT THIS TIME WILL CONTINUE TO MONITOR UNTIL SHIFT CHANGE
--- NOTE | 2022-01-15 05:46 | NUR ---
Assumed care of pt at 1900. Patient has received Seroquel on me that seemed to make his confusion worse and less redirectable. Patient would ask every 30 seconds "where's the bus stop? I need to get on a bus to [place]". Patient received Zyprexa that calmed patient down and allowed him to rest. Patient began displaying lip smacking, odd tongue movements, and random spasm movements. He has been having issues with urinary retention, only urinating 50-75ml at a time. Bladder scan showed more than 450ml, encouraged patient to urinate but he was only able to produce a few drops. Order for straight cath obtained and 475ml out. Patient reports relief. Patient flipped from Afib 90-110's to a junctional rhythm, then to sinus red 40-50's and has maintained there since. MAP became lower towards end of shift in the 60's, and SBP 80-90's. Resp remains WNL. NS continues to run per emar. Will report to [facility] RN.
--- NOTE | 2022-01-15 07:41 | NUR ---
Pt is sleeping soundly, respirations are unlabored. Noted to have periods of shallow, irregular respirations/apnea lasting about 20-30 seconds. SPo2 continuous monitoring shows 95-98%. Sinus bradycardia 44-50 bpm by telemetry monitoring.Hob is elevated at 20%. Occasional spontaeous dry cough noted while he is lying supine. Mouth is open.
[2022-01-15 09:18] LABS: Albumin, Blood 2.5 g/dL (3.4-5.0); Anion Gap 5 mmol/L (6-16); Blood Urea Nitrogen 23 mg/dL (8-24); Bun/Creatinine Ratio 17.3 (12.0-20.0); CO2, Blood 23 mmol/L (21-32); Calcium, Blood 8.2 mg/dL (8.5-10.1); Chloride, Blood 113 mmol/L (98-108); Creatinine, Blood 1.33 mg/dL (0.60-1.20); Glomerular Filtration Rate 51 (60-); Glucose, Blood 81 mg/dL (70-99); Phosphorus, Blood 3.2 mg/dL (2.5-4.9); Potassium, Blood 4.3 mmol/L (3.5-5.5); Sodium, Blood 141 mmol/L (136-145)
--- NOTE | 2022-01-15 09:43 | NUR ---
Awakened patient. He was not easily arousable. Gave several short comments without opening his eyes. He kept saying that he was cold and didn't want to be touched. Oriented to person, date of , following directions. IV right forearm noted infiltrated with NS at 100cc/hour infusing. IV was dc'd and infusion continued via existing IV left antecubital space. STated that he needed to urinate. Very unsteady on his feet, but insisted on standing at side of bed to use the urinal. Voided less than 10 cc of blood tinged urine. Alan blood noted few drops from urethra after urinating. Bladder scan post void was 232 cc at 0900. Assisted back to bed, given heating pad to torso and warm blanket. He declined breakfast, states that he just want to sleep. He was quite able to take pills whole one at a time with applesauce while sitting upright in the bed. HOB lowered afterwards and pt appears to be going back to sleep. Bed alarm reactivated.
--- NOTE | 2022-01-15 11:00 | NUR ---
Pt set bed alarm off attempting OOB. Said that he needs to urinate. Stood at side of bed, unable to void. Sat on bedside commode, still unable to void.
--- NOTE | 2022-01-15 11:04 | NUR ---
bladder scan 272 cc. PT states his bladder feels full.
--- NOTE | 2022-01-15 11:35 | NUR ---
Call to [facility] [place] regarding bladder scan, reported also drops of paula blood noted from urethra. Concerns re: risks of straight catheterization vs. risks of Ruiz catheterization (pt is also confused and agitated at times). Pt's is now here at bedside. Speech therapist here to do swallow evaluation follow up.
--- NOTE | 2022-01-15 13:37 | NUR ---
14 Hungarian coude catheter placed without any resistance. Lea at the pt's bedside during the procedure. He tolerated it well. Initially pink tinged urine was evacuated, then clear yellow. UA sent per protocol.
[2022-01-15 13:48] LABS: Source, Urine Foley catheter
[2022-01-15 13:58] LABS: Appearance, Urine Hazy (Clear); Bilirubin, Urine Neg (Neg); Blood, Urine 5+ (Neg); Glucose Qualitative, Urine Neg (Neg); Ketones, Urine Neg (Neg); Leukocyte Esterase, Urine 1+ (Neg); Nitrite, Urine Neg (Neg); Protein, Urine 2+ (Neg); Specific Gravity, Urine 1.015 (1.003-1.022); Urobilinogen, Urine NORM (Normal)
[2022-01-15 14:04] LABS: Color, Urine Red (P-Yellow)
[2022-01-15 14:06] LABS: Bacteria Few /hpf; Red Blood Cells, Urine 50-100 /hpf (0-2); Renal Epithelial Rare /hpf (0-Rare); Squamous Epithelial Cells Rare /hpf (Few); White Blood Cells, Urine 0-2 /hpf (0-5)
--- NOTE | 2022-01-15 17:16 | NUR ---
Daughter and are at bedside. The pt has been napping all afternoon. Noted urine draining in hightower tubing and collection bag has changed to cranberry color. No clots noted.
--- NOTE | 2022-01-15 18:11 | NUR ---
Attempted to meet with pt's Jones to further discuss looking into hospice as extra suport for both of them, and he is appropriate for hospice given his cardiac status. Plan to attempt again prior to discharge.
--- NOTE | 2022-01-16 01:32 | NUR ---
PT XFER F/PCU PT ARRIVED TO ROOM AT 0125; SWAPED BEDS. PT SLEEPING; DROWSY WHEN ARROUSED. HR BRADYCARDIC AT 44; SBP 126. HEATED VEST F/HOME AND KPAD IN PLACE; PT STILL C/O OF BEING COLD; NOTED SHIVERING; PLACED WARM BLANKET. NOTE PERIODS OF APNEA WHEN SLEEPING.
--- NOTE | 2022-01-16 02:28 | NUR ---
Patient remains A/O to self and family. Redirectable when confused and attempts to get up. Ruiz cath draining to gravity yellow urine, no sign of further bleeding. VSS. Family was with him until around 2200. Patient was moved to medical floor RM 344. Attempted to call patients spouse to update where he was but had no answer.
--- NOTE | 2022-01-16 04:40 | NUR ---
GRAIN ELEVATOR AGENT SUMMARY PT XFER F/PCU12 AT 0125. PER NOTE F/DR BURDEN; PT D/C HOME ON HOSPICE; TELE D/C'D AND PUT ON COMFORT CARE; OF THIS NOTE, NO ORDERS FOR COMFORT CARE ENTERED IN PT CHART. PT HAS BEEN SLEEPING HEAVY SINCE XFER T/MED FLOOR; AROUSABLE BUT DROWSY. NOTED PERIODS OF APNEA WHILE PT IS SLEEPING. PT HAVING EPISODES OF HYPOTENSION AND BRADYCARDIA; HR 47; SPB 94; WILL CONT T/MONITOR AND CONTACT DR NEEDED. SHIFT ASSESSMENT COMPLETED BY SPECIAL POLICE OFFICER PRIOR TO XFER; I AGREE W/ASSESSMENT ENTERED. MIXON IN PLACE; PATENT; DRAINING TO GRAVITY. PT ON [facility] SOFT DIET; NECTAR THICK, FEEDER, NO STRAWS. PT HAS NOT MADE ANY ATTEMPTS TO GET OUT OF BED SINCE XFER. REPORT F/SPECIAL POLICE OFFICER; STATED WITHELD PM DOSE OF SEROQUEL BECAUSE WHEN GIVEN ON PREVIOUS NIGHT PT BECAME MORE AGITATED/CONFUSED AND NOTED S/SX TARDIVE DYSKINESIA. RN STATED ZYPREXA HAD BETTER EFFICACY WHEN USED. PT ORIENTED TO ROOM/CALL LIGHT IN REACH.
--- NOTE | 2022-01-16 05:22 | NUR ---
REPOSITIONED PT; SBP 117; HR 56. WILL CONT TO MONITOR.
--- NOTE | 2022-01-16 15:58 | NUR ---
PT SITTING UP IN THE CHAIR WITH MULTIPLE FAMILY IN THE ROOM. VISIT MADE TO FOLLOW UP WITH PT/FAMILY TO OFFER SUPPORT OR ANSWER ANY QUESTIONS THEY MAY HAVE ABOUT THE DC PLAN. PT TO BE DCD HOME TOMORROW WITH HOSPICE. NO QUESTIONS OR CONCERNS, PT DENIES PAIN AND NO SYMPTOMS THAT NEED TO BE MANAGED. ADVISED IF THEY THINK OF ANYTHING TO HAVE THE RN CALL PALLIATIVE CARE AND I WILL RETURN TO ASSIST.
--- NOTE | 2022-01-16 17:35 | NUR ---
SHIFT SUMMARY PTN SCHEDULED TO GO HOME TOMORROW AT 10 AM WITH [facility] FOLLOWING HIS CARE. NEEDED HOME EQUIPMENT BEING SET UP. PTN STANDBY ASSIST AND WAS UP AMBULATING WITH WALKER AND STANDBY AROUND ROOM AND TO TOILET. MEDICATIONS GIVEN WHOLE, ONE AT A TIME, IN A BITE OF APPLESAUCE, WHICH PTN TOLERATED WELL. PTN HAS EATEN SEVERAL ICE CREAMS TODAY, WHICH HE ENJOYS. HE IS COLD ON REGULAR BASIS, AND FAMILY HAVE BROUGHT IN HEATED JACKET, WELL COVERED IN BLANKETS. PTN BP LOW, MIDODRINE GIVEN TID, WHICH WAS EFFECTIVE. PARAMETERS FOR DILTIAZEM GIVEN BY DR EVERETT, HOLD FOR HR LESS THAN 50, SYSTOLIC BP LESS THAN 90, ADDED NOTE TO EMAR. FAMILY PRESENT ENTIRE SHIFT, TO INCLUDE AND DAUGHTER, WELL MULTIPLE FRIENDS/FAMILY MEMBERS. CONTINUE TO MONITOR.
--- NOTE | 2022-01-17 06:13 | NUR ---
PATIENT WAS ALERT BUT PLEASANTLY CONFUSED OVERNIGHT. YADY WAS OBSESSED WITH NEEDING TO PEE. HIS MEMORY APPEARS TO CYCLE ABOUT EVERY MINUTE. HE IS EASILY REDIRECTED AND EVENTUALLY FELL ASLEEP FOR THE NIGHT. NO COMPLAINTS OR INDICATIONS OF DISCOMFORT OVERNIGHT. PATIENT LOOKING FORWARD TO GOING HOME WITH HOSPICE LATER TODAY.
[2022-01-17] MEDS ORDERED: MELA3 PO (07:51)
[2022-01-17] MEDS ORDERED: Seroquel Xr50 MG PO (07:52)
[2022-01-17] MEDS ORDERED: MIDO5 PO (07:52)
--- NOTE | 2022-01-17 11:00 | NUR ---
CARE CONSULT, RN, FAMILY AND PT WITH NO CONCERNS OR SYMTPOMS THAT NEED MANAGED. PT AWATING TO BE DCD HOME WITH HOSPICE.
--- NOTE | 2022-01-17 13:01 | NUR ---
PT DISCHARGED AT 1215 WITH NO DISTRESSS NOTED. FAMILY HAD ALL PAPERWORK REVIEWED AND HOSPICE NURSE IS TO MEET FAMILY AT HOME. PERSONAL BELINGINGS COLLECTED AND PT ESCORTED OUT VIA WHEELCHAIR. NO DISTESS NOTED. WILL CONTINUE TO MONITOR.
== END 2022-01-17 12:14 | disposition hospice, home (50) | DRG 310 ==
LOC: ER 06:09 → MEDS 09:25 → ERHOLD 09:25 → PCU 11:50 → MEDS 01-16 01:22
PROVIDERS: Emergency Medicine; Family Medicine; ADMIT Internal Medicine
DX: I48.91 Unspecified atrial fibrillation (principal); I49.5 Sick sinus syndrome; I65.29 Occlusion and stenosis of unspecified carotid artery; N18.30 Chronic kidney disease, stage 3 unspecified; I25.10 Atherosclerotic heart disease of native coronary artery without angina pectoris; I12.9 Hypertensive chronic kidney disease with stage 1 through stage 4 chronic kidney disease, or unspecified chronic kidney disease; E78.5 Hyperlipidemia, unspecified; Z66 Do not resuscitate; E03.9 Hypothyroidism, unspecified; Z51.5 Encounter for palliative care; N40.1 Benign prostatic hyperplasia with lower urinary tract symptoms; I95.9 Hypotension, unspecified; R33.8 Other retention of urine; F03.90 Unspecified dementia, unspecified severity, without behavioral disturbance, psychotic disturbance, mood disturbance, and anxiety; N28.9 Disorder of kidney and ureter, unspecified; F32.9 Major depressive disorder, single episode, unspecified; C61 Malignant neoplasm of prostate; Z90.49 Acquired absence of other specified parts of digestive tract; Z87.19 Personal history of other diseases of the digestive system; Z98.890 Other specified postprocedural states; Z87.891 Personal history of nicotine dependence; Z79.01 Long term (current) use of anticoagulants; Z79.02 Long term (current) use of antithrombotics/antiplatelets; Z79.899 Other long term (current) drug therapy; Z79.811 Long term (current) use of aromatase inhibitors
CPT/HCPCS: 36415; 51703; 71045; 80048; 80053; 80069; 81001; 83735; 84443; 84484; 85025; 87086; 92526; 92610; 93005; 93010; 96361; 96365; 96366; 96375; 96376; 97110; 97162; 97530; 99285-25; A9270; J0696; J3475; J7030; J7050